=== PATIENT | male | born 1985 | race Caucasian/White ===

== ENCOUNTER 2016-10-18 16:33 | Emergency (ER) | payer OTHER ==
[2016-10-18 17:00] VITALS: BP 134/90; PULSE 88; TEMP 98.2; BMI 31.1
[2016-10-18] MEDS ORDERED: traMADol HCL 50 MG TABLET PO ONE (18:06)
[2016-10-18] MEDS ORDERED: traMADol HCL 50 MG TABLET ONE (18:09)
--- NOTE | 2016-10-18 18:12 | PDOC ---
History of Present Illness - General Chief Complaint: Pain Stated Complaint: PAIN Time Seen by Provider: 10/18/16 16:56 History Source: Patient - History of Present Illness Timing/Duration: 1 week Severity: severe Associated Symptoms: reports: chest pain. denies: cough, fever/chills, nausea/ vomiting, shortness of breath Past History - Past Medical History Allergies/Adverse Reactions: Allergies Allergy/AdvReac Type Severity Reaction Status Date / Time No Known Allergies Allergy Verified 10/18/16 17:00 Home Medications: Ambulatory Orders Tramadol HCl 50 mg PO Q6H #20 tablet MDD 200mg 10/18/16 Other medical history: DENIES - Psycho/Social/Smoking Cessation Hx Suicidal Ideation: No Smoking History: Current every day smoker Have you smoked in the past 12 months: No Number of Cigarettes Smoked Daily: 10 If you are a former smoker, when did you quit?: 2014 Information on smoking cessation initiated: No 'Breaking Loose' booklet given: 06/10/15 Hx Alcohol Use: No Drug/Substance Use Hx: No Substance Use Type: None Review of Systems - Review of Systems Constitutional: No: Fever Respiratory: No: Shortness of Breath, Wheezing Cardiac (ROS): Yes: Chest Pain. No: Lightheadedness, Palpitations, Syncope *Physical Exam - Vital Signs Last Vital Signs Temp Pulse Resp BP Pulse Ox 98.2 F 88 18 134/90 98 10/18/16 16:56 10/18/16 16:56 10/18/16 16:56 10/18/16 16:56 10/18/16 16:56 - Physical Exam General Appearance: Yes: Appropriately Dressed. No: Apparent Distress HEENT: positive: Normal Voice Neck: positive: Supple Respiratory/Chest: positive: Chest Tender (ttp to ~3x4 cm area to R lateral upper chest in MAL, no swelling, erythema or rash), Lungs Clear, Normal Breath Sounds. negative: Respiratory Distress Medical Decision Making - Medical Decision Making 10/18/16 18:07 31-year-old male denies any past medical history here with pain to right side of chest. Patient reports waking up with pain approximately one week ago, describes as a burning sensation, severe and constant. States pain worsens with deep inspiration and movement. Otherwise, no shortness of breath, diaphoresis, nausea, vomiting, palpitations, leg pain, swelling or cough. Denies any trauma or other inciting agent. No recent travel. No history of similar pain in the past. Has been to [facility] twice for pain including today and had negative x-ray on visit last week per pt. States today he was given a shot of Toradol with no relief. Patient also complaining of dental pain , left lower tooth for unclear duration. No facial swelling, fever or chills See exam R chest wall pain x 1 week Neg CXR done at OSH last week On Nsaids w/ no relief Well freddy and stable w/ localized area of significant tenderness to proximal aspect of R lateral chest in MAL, no swelling or other skin changes to explain pain Possible muscular in etiology, unlikely cardiac and PERCs out No utility in reimaging or labs today -dc w/ pain control and PMD f/u Dental pain Poor dentition w/ missing teeth and cavities No s/o infxn currently -dc w/ pain control and dental referral 10/18/16 18:21 10/18/16 18:22 *DC/Admit/Observation/Transfer Diagnosis at time of Disposition: Chest wall pain, Pain, dental - Discharge Dispostion Disposition: HOME Condition at time of disposition: Good - Prescriptions Prescriptions: Tramadol HCl 50 mg PO Q6H #20 tablet MDD 200mg - Referrals Referrals: Dane Benton MD [Staff Physician] - - Patient Instructions Printed Discharge Instructions: Muscle Strain, DI for Dental Pain Additional Instructions: The course of your pain might be muscular. Take meds as directed and follow up with Dr Benton Please follow up in dental clinic in [place] this week: [facility] [address] [place], [place] [id number]
== END 2016-10-18 18:20 | disposition home or self-care (01) ==
LOC: JERFT 16:33
DX: R07.89 Other chest pain (principal); K08.89 Other specified disorders of teeth and supporting structures
CPT/HCPCS: 99281-25

== ENCOUNTER 2017-11-24 10:18 | Inpatient (IN) | payer OTHER ==
[2017-11-24 11:24] VITALS: BMI 28.2
--- NOTE | 2017-11-24 13:35 | HP ---
COWS - Scale Resting Pulse: 1= [place] 81-100 Sweatin= Chills/Flushing Restless Observation: 1= Difficult to Sit Still Pupil Size: 1= Pupils >than Normal Bone or Joint Aches: 2= Severe Diffuse Aches Runny Nose/ Eye Tearin= Nasal Congestion GI Upset > 30mins: 2= Nausea/Diarrhea Tremor Observation: 2= Slight Tremor Visible Yawning Observation: 2= >3x During Session Anxiety or Irritability: 2=Irritable/Anxious Goose Flesh Skin: 3=Piloerection COWS Score: 18 Admission ROS S - HPI Chief Complaint: opiate withdrawal sx Allergies/Adverse Reactions: Allergies Allergy/AdvReac Type Severity Reaction Status Date / Time No Known Allergies Allergy Verified 11/24/17 11:19 History of Present Illness: 32 yeas old male with long history of opiate nicotine dependence denies medical issue has anxiety is admitted to detox Exam Limitations: No Limitations - Ebola screening Have you traveled outside of the country in the last 21 days: No Have you had contact with anyone from an Ebola affected area: No Have you been sick,other than usual withdrawal symptoms: No Do you have a fever: No - Review of Systems Constitutional: Changes in sleep, Weight Stable EENT: reports: No Symptoms Reported Respiratory: reports: Cough Cardiac: reports: No Symptoms Reported GI: reports: Diarrhea, Nausea, Poor Appetite, Poor Fluid Intake, Abdominal cramping : reports: No Symptoms Reported Musculoskeletal: reports: Back Pain, Joint Pain, Muscle Pain, Neck Pain Integumentary: reports: Change in Color (arms iv heroin) Neuro: reports: Tremors Endocrine: reports: No Symptoms Reported Hematology: reports: No Symptoms Reported Psychiatric: reports: Judgement Intact, Orientated x3, Anxious, Depressed Other Systems: Reviewed and Negative Patient History - Patient Medical History Hx Anemia: No Hx Asthma: No Hx Chronic Obstructive Pulmonary Disease (COPD): No Hx Cancer: No Hx Cardiac Disorders: No Hx Congestive Heart Failure: No Hx Hypertension: No Hx Hypercholesterolemia: No Hx Pacemaker: No HX Cerebrovascular Accident: No Hx Seizures: No Hx Dementia: No Hx Diabetes: No Hx Gastrointestinal Disorders: No Hx Liver Disease: No Hx Genitourinary Disorders: No Hx Sexually Transmitted Disorders: No Hx Renal Disease (ESRD): No Hx Thyroid Disease: No Hx Human Immunodeficiency Virus (HIV): No Hx Hepatitis C: Yes (treated) Hx Depression: No Hx Suicide Attempt: No Hx Bipolar Disorder: No Hx Schizophrenia: No - Patient Surgical History Past Surgical History: Yes Hx Neurologic Surgery: No Hx Cataract Extraction: No Hx Cardiac Surgery: No Hx Lung Surgery: No Hx Breast Surgery: No Hx Breast Biopsy: No Hx Abdominal Surgery: No Hx Appendectomy: No Hx Cholecystectomy: No Hx Genitourinary Surgery: No Hx Orthopedic Surgery: No Other Surgical History: removal of cyst, lower back - PPD History Previous Implant?: Yes Documented Results: Negative w/o proof Implanted On Prior R Admission?: No PPD to be Administered?: Yes - Smoking Cessation Smoking history: Current every day smoker Have you smoked in the past 12 months: No Aproximately how many cigarettes per day: 10 If you are a former smoker, when did you quit?: 2014 Hx Chewing Tobacco Use: No Initiated information on smoking cessation: Yes 'Breaking Loose' booklet given: 11/24/17 - Substance & Tx. History Hx Alcohol Use: No Hx Substance Use: Yes Substance Use Type: Cocaine, Marijuana, Opiates Hx Substance Use Treatment: No - Substances Abused Heroin Route: Injection Frequency: Daily Amount used: 4-5 bags Age of first use: 30 Date of Last Use: 11/24/17 Crack Route: Smoking Frequency: 1-2 times per week Amount used: $10 Age of first use: 32 Date of Last Use: 11/22/17 PCP Route: Smoking Frequency: 1-3 times last 30 days Amount used: $20 Age of first use: 18 Date of Last Use: 11/22/17 Marijuana Route: Smoking Frequency: No use in 30 days Amount used: 1 blunt Age of first use: 17 Date of Last Use: 11/23/17 Family Disease History - Family Disease History Family Disease History: Diabetes: Brother Admission Physical Exam BHS - Vital Signs Vital Signs: Vital Signs - 24 hr 11/24/17 11:23 Temperature 98.6 F Pulse Rate 89 Respiratory 18 Rate Blood Pressure 110/66 - Physical General Appearance: Yes: Appropriately Dressed, Moderate Distress, Tremorous, Irritable, Sweating, Anxious HEENTM: Yes: Hearing grossly Normal, Normocephalic, Normal Voice Respiratory: Yes: Chest Non-Tender, Lungs Clear, Normal Breath Sounds, No Respiratory Distress, No Accessory Muscle Use Neck: Yes: Supple, Trachea in good position Breast: Yes: Breasts Symetrical, No Discharge Cardiology: Yes: Regular Rhythm, Regular Rate, S1, S2 Abdominal: Yes: Normal Bowel Sounds, Non Tender, Flat Genitourinary: Yes: Within Normal Limits Back: Yes: Normal Inspection Musculoskeletal: Yes: full range of Motion, Gait Steady, Back pain, Muscle Pain Extremities: Yes: Normal Inspection, Normal Range of Motion, Non-Tender, Tremors Neurological: Yes: Fully Oriented, Alert, Motor Strength 5/5, Normal Response, Depressed Affect Integumentary: Yes: Warm, Track [place] Lymphatic: Yes: Within Normal Limits - Diagnostic (1) Opioid dependence with withdrawal Current Visit: Yes Status: Acute (2) Nicotine dependence Current Visit: Yes Status: Acute Qualifiers: Nicotine product type: cigarettes Substance use status: in withdrawal Qualified Code(s): F17.213 - Nicotine dependence, cigarettes, with withdrawal (3) Hepatitis-C Current Visit: Yes Status: Resolved Qualifiers: Viral hepatitis chronicity: unspecified Hepatic coma status: without hepatic coma Qualified Code(s): B19.20 - Unspecified viral hepatitis C without hepatic coma (4) Anxiety Current Visit: Yes Status: Suspected Cleared for Admission [facility] - Detox or Rehab [facility] Level of Care: Medically Managed Detox Regimen/Protocol: Methadone [facility] Breath Alcohol Content Breath Alcohol Content: 0 Urine Drug Screen - Results Drug Screen Negative: No Urine Drug Screen Results: THC-Marijuana, LINA-Cocaine, OPI-Opiates, PCP- Phencyclidine
[2017-11-24] MEDS ORDERED: P-EPHED 60MG/TRIPROLIDI 2.5MG TABLET PO PRN (13:41)
[2017-11-24] MEDS ORDERED: MAG HYDROX/AL HYDROX/SIMETH 30 ML UNIT-DOSE CUP PO PRN (13:41)
[2017-11-24] MEDS ORDERED: LOPERAMIDE HCL 2 MG CAPSULE PO PRN (13:41)
[2017-11-24] MEDS ORDERED: ACETAMINOPHEN 325 MG TABLET (FP) PO PRN (13:41)
[2017-11-24] MEDS ORDERED: NICOTINE POLACRILEX 2 MG GUM BUC PRN (13:41)
[2017-11-24] MEDS ORDERED: IBUPROFEN 400 MG TABLET (FP) PO PRN (13:41)
[2017-11-24] MEDS ORDERED: guaiFENesin/D-METHORPHAN HB 10 ML UNIT-DOSE CUPS PO PRN (13:41)
[2017-11-24] MEDS ORDERED: MENTHOL/PHENOL 1 EACH UD MM PRN (13:41)
[2017-11-24] MEDS ORDERED: MAGNESIUM HYDROX 2400MG/30ML ORAL SUSPENSION 30 ML CUP PO PRN (13:41)
[2017-11-24] MEDS ORDERED: MAGNESIUM CITRATE 300 ML BOTTLE PO PRN (13:41)
[2017-11-24] MEDS ORDERED: METHADONE HCL 10 MG TABLET (FOR DETOX USE ONLY) PO ONE ×2 (14:30→23:00)
[2017-11-24] MEDS: NICOTINE 14 MG/24 HOURS TOPICAL PATCH TD SCH (17:03)
[2017-11-24] MEDS: BACLOFEN 10 MG TABLET (FP) PO SCH ×2 (17:04→22:07)
[2017-11-24] MEDS: diazePAM 5 MG TABLET PO PRN ×2 (17:04→22:08)
[2017-11-24] MEDS: DOCUSATE SODIUM 100 MG CAPSULE (FP) PO SCH ×2 (17:04→22:07)
[2017-11-24 19:04] LABS: URINE APPEARANCE CLEAR; URINE BILIRUBIN NEGATIVE (<2.0 mg/dL); URINE COLOR LTYELLOW; URINE GLUCOSE (UA) NEGATIVE (NEGATIVE); URINE KETONE NEGATIVE (NEGATIVE); URINE LEUK ESTERASE NEGATIVE (NEGATIVE); URINE NITRITE NEGATIVE (NEGATIVE); URINE PROTEIN NEGATIVE (NEGATIVE); URINE UROBILINOGEN NEGATIVE mg/dL (0.2-1.0)
[2017-11-24] MEDS ORDERED: MELATONIN 5 MG TABLETS PO PRN (22:00)
[2017-11-24] MEDS: THIAMINE HCL 100 MG TABLET (FP) PO SCH (22:07)
[2017-11-24] MEDS: SENNOSIDES 8.6MG TABLET (FP) PO SCH (22:07)
[2017-11-25] MEDS: diazePAM 5 MG TABLET PO PRN ×3 (05:15→22:36)
[2017-11-25] MEDS: BACLOFEN 10 MG TABLET (FP) PO SCH ×3 (05:15→22:37)
[2017-11-25] MEDS: DOCUSATE SODIUM 100 MG CAPSULE (FP) PO SCH ×3 (05:16→22:37)
[2017-11-25 09:54] LABS: HEMATOCRIT 38.8 % (35.4-49); HEMOGLOBIN 12.9 GM/dL (11.7-16.9); MCH 30.1 pg (25.7-33.7); MCHC 33.2 g/dl (32.0-35.9); MEAN CELL VOLUME 90.6 fl (80-96); MEAN PLT VOLUME 9.1 fl (7.5-11.1); PLATELET COUNT 307 K/MM3 (134-434); RBC 4.28 M/mm3 (4.00-5.60); RDW 14.6 % (11.9-15.9); WHITE BLOOD COUNT 11.7 K/mm3 (4.0-10.0)
[2017-11-25] MEDS ORDERED: METHADONE HCL 10 MG TABLET (FOR DETOX USE ONLY) PO ONE (10:00)
[2017-11-25] MEDS: NICOTINE 14 MG/24 HOURS TOPICAL PATCH TD SCH (10:08)
[2017-11-25] MEDS: PRENATAL VITAMINS W/ FOLIC ACID TABLET (FP) PO SCH (10:08)
[2017-11-25 10:49] LABS: ALBUMIN 3.6 g/dl (3.4-5.0); ALK PHOS 71 U/L (45-117); ANION GAP 8 (8-16); BILIRUBIN,TOTAL 0.3 mg/dL (0.2-1.0); BLOOD UREA NITROGEN 14 mg/dL (7-18); CALCIUM 9.2 mg/dL (8.5-10.1); CHLORIDE 107 mmol/L (98-107); CO2 27 mmol/L (21-32); CREATININE 0.8 mg/dL (0.7-1.3); GLUCOSE,RANDOM 92 mg/dL (74-106); POTASSIUM 4.3 mmol/L (3.5-5.1); SGOT/AST 12 U/L (15-37); SGPT/ALT 15 U/L (12-78); SODIUM 142 mmol/L (136-145); TOT PROT 7.1 g/dl (6.4-8.2)
[2017-11-25] MEDS ORDERED: TRIMETHOBENZAMIDE HCL 300 MG CAPSULE PO PRN (11:27)
--- NOTE | 2017-11-25 12:08 | PN ---
BHS COWS - Scale Resting Pulse: 1= [place] 81-100 Sweatin= Chills/Flushing Restless Observation: 1= Difficult to Sit Still Pupil Size: 1= Pupils >than Normal Bone or Joint Aches: 2= Severe Diffuse Aches Runny Nose/ Eye Tearin= Runny Nose/Eyes GI Upset > 30mins: 2= Nausea/Diarrhea Tremor Observation of Outstretched Hands: 2= Slight Tremor Visible Yawning Observation: 1= 1-2x During Session Anxiety or Irritability: 2=Irritable/Anxious Goose Flesh Skin: 0=Smooth Skin COWS Score: 15 BHS Progress Note (SOAP) Subjective: Body Aches, Tremors, Fatigue, Constipation, Sweating, Nausea, Chills, Hot/Cold Sensations. Objective: PATIENT A & O X 2 (UNCERTAIN ABOUT CURRENT DAY / DATE). PATIENT OBSERVED AMBULATING ON UNIT. NO ACUTE DISTRESS. 11/25/17 12:05 Vital Signs Temperature 97.3 F L 11/25/17 09:45 Pulse Rate 87 11/25/17 09:45 Respiratory Rate 16 11/25/17 09:45 Blood Pressure 103/62 11/25/17 09:45 O2 Sat by Pulse Oximetry (%) Laboratory Tests 11/24/17 11/24/17 11/25/17 14:00 14:30 06:00 WBC 11.7 H RBC 4.28 Hgb 12.9 Hct 38.8 MCV 90.6 MCH 30.1 MCHC 33.2 RDW 14.6 Plt Count 307 MPV 9.1 Sodium Potassium Chloride Carbon Dioxide Anion Gap BUN Creatinine Creat Clearance w eGFR Random Glucose Calcium Total Bilirubin AST ALT Alkaline Phosphatase Total Protein Albumin Urine Color Ltyellow Urine Appearance Clear Urine pH 6.0 Ur Specific [place] 1.020 Urine Protein Negative Urine Glucose (UA) Negative Urine Ketones Negative Urine Blood Negative Urine Nitrite Negative Urine Bilirubin Negative Urine Urobilinogen Negative Ur Leukocyte Esterase Negative HIV 1&2 Antibody Screen Negative HIV P24 Antigen Negative 11/25/17 06:00 WBC RBC Hgb Hct MCV MCH MCHC RDW Plt Count MPV Sodium 142 Potassium 4.3 Chloride 107 Carbon Dioxide 27 Anion Gap 8 BUN 14 Creatinine 0.8 Creat Clearance w eGFR > 60 Random Glucose 92 Calcium 9.2 Total Bilirubin 0.3 AST 12 L ALT 15 Alkaline Phosphatase 71 Total Protein 7.1 Albumin 3.6 Urine Color Urine Appearance Urine pH Ur Specific [place] Urine Protein Urine Glucose (UA) Urine Ketones Urine Blood Urine Nitrite Urine Bilirubin Urine Urobilinogen Ur Leukocyte Esterase HIV 1&2 Antibody Screen HIV P24 Antigen LABS NOTED. RPR RESULT PENDING. 11/25/17 12:06 Assessment: 11/25/17 12:05 WITHDRAWAL SYMPTOMS. Plan: CONTINUE DETOX. INCREASE DAILY PO FLUID INTAKE. TIGAN PO PRN FOR NAUSEA/VOMITING. PRN MOM FOR CONSTIPATION.
--- NOTE | 2017-11-25 19:06 | CONSULT ---
[facility] Psychiatric Consult - Data Date of interview: 11/25/17 Admission source: [facility] Identifying data: First admission to [facility] for this 32 y/o male seeking detox treatment on for heroin,cannabis,cocaine and phencyclidine dependence.Patient is single,fathre of one,homeless,unemployed and supported on food stamps. Substance Abuse History: Confirmed by patient in my interview.Smoking history: Current every day smoker. Have you smoked in the past 12 months: No. Aproximately how many cigarettes per day: 10. If you are a former smoker, when did you quit?: 2014. Hx Chewing Tobacco Use: No. Initiated information on smoking cessation: Yes. 'Breaking Loose' booklet given: 11/24/17. - Substance & Tx. History. Hx Alcohol Use: No. Hx Substance Use: Yes. Substance Use Type : Cocaine, Marijuana, Opiates. Hx Substance Use Treatment: No. - Substances Abused. Heroin. Route: Injection. Frequency: Daily. Amount used: 4-5 bags. Age of first use: 30. Date of Last Use: 11/24/17. Crack. Route: Smoking. Frequency: 1-2 times per week. Amount used: $10. Age of first use: 32. Date of Last Use: 11/22/17. PCP. Route: Smoking. Frequency: 1-3 times last 30 days. Amount used: $20. Age of first use: 18. Date of Last Use : 11/22/17. Marijuana. Route: Smoking. Frequency: No use in 30 days. Amount used: 1 blunt. Age of first use: 17. Date of Last Use: 11/23/17 Medical History: Hepatitis C (treated). Psychiatric History: No reported history of psychiatric hospitalizations.Patient denies having a " psychiatric diagnosis ".Mr Multani indicates that he used to be on seroquel to address insomnia (during stay at [facility]).No contact with psychiatric OPD care providers.Patient denies history of suicide attempts. Physical/Sexual Abuse/Trauma History: No reported history of abuse. Additional Comment: Urine Drug Screen Results: THC-Marijuana, LINA-Cocaine, OPI- Opiates, PCP-Phencyclidine.Noted. Mental Status Exam - Mental Status Exam Alert and Oriented to: Time, Place, Person Cognitive Function: Good Patient Appearance: Well Groomed Mood: Withdrawn, Hopeful Affect: Constricted Patient Behavior: Fatigued, Appropriate, Cooperative Speech Pattern: Clear, Appropriate Voice Loudness: Normal Thought Process: Intact, Goal Oriented Thought Disorder: Not Present Hallucinations: Denies Suicidal Ideation: Denies Homicidal Ideation: Denies Insight/Judgement: Poor Sleep: Poorly, Difficulty falling asleep Appetite: Good Muscle strength/Tone: Normal Gait/Station: Normal Psychiatric Findings - Problem List ([place] 1, 2,3) (1) Opioid dependence with withdrawal Current Visit: Yes Status: Acute (2) Cocaine dependence Current Visit: Yes Status: Acute (3) Cannabis dependence Current Visit: Yes Status: Acute (4) PCP dependence Current Visit: Yes Status: Acute (5) Nicotine dependence Current Visit: Yes Status: Acute Qualifiers: Nicotine product type: cigarettes Substance use status: in withdrawal Qualified Code(s): F17.213 - Nicotine dependence, cigarettes, with withdrawal (6) Substance induced mood disorder Current Visit: Yes Status: Acute (7) Insomnia Current Visit: Yes Status: Acute - Initial Treatment Plan Initial Treatment Plan: Psychoeducation.Sleep hygiene.Detoxification.Seroquel 50 mg po hs (patient's request).Side effects/benefits discussed with the patient.Mr Multani agrees to this careplan.Observation.
[2017-11-25] MEDS: SENNOSIDES 8.6MG TABLET (FP) PO SCH (22:36)
[2017-11-25] MEDS: THIAMINE HCL 100 MG TABLET (FP) PO SCH (22:36)
[2017-11-26] MEDS: DOCUSATE SODIUM 100 MG CAPSULE (FP) PO SCH (05:11)
[2017-11-26] MEDS: diazePAM 5 MG TABLET PO PRN ×2 (05:11→10:12)
[2017-11-26] MEDS: BACLOFEN 10 MG TABLET (FP) PO SCH (05:11)
--- NOTE | 2017-11-26 09:04 | EKG ---
Test Reason : Blood Pressure : / mmHG Vent. Rate : 062 BPM Atrial Rate : 062 BPM P-R Int : 168 ms QRS Dur : 098 ms QT Int : 396 ms P-R-T Axes : 047 048 016 degrees QTc Int : 401 ms NORMAL SINUS RHYTHM NORMAL ECG NO PREVIOUS ECGS AVAILABLE Confirmed by PAUL BARRY, LAY ([id number]) on 11/26/2017 9:03:53 AM Referred By: Confirmed By:LAY MILLER MD
[2017-11-26] MEDS ORDERED: METHADONE HCL 5 MG TABLET (FOR DETOX USE ONLY) PO ONE (10:00)
[2017-11-26] MEDS: NICOTINE 14 MG/24 HOURS TOPICAL PATCH TD SCH (10:12)
[2017-11-26] MEDS: PRENATAL VITAMINS W/ FOLIC ACID TABLET (FP) PO SCH (10:12)
[2017-11-26 10:44] VITALS: BP 108/73; PULSE 87; TEMP 98.4
--- NOTE | 2017-11-26 15:50 | PN ---
BHS COWS - Scale Resting Pulse: 1= [place] 81-100 Sweatin= Chills/Flushing Restless Observation: 1= Difficult to Sit Still Pupil Size: 0= Normal to Room Light Bone or Joint Aches: 2= Severe Diffuse Aches Runny Nose/ Eye Tearin= Nasal Congestion GI Upset > 30mins: 0= None Tremor Observation of Outstretched Hands: 0= None Yawning Observation: 1= 1-2x During Session Anxiety or Irritability: 2=Irritable/Anxious Goose Flesh Skin: 3=Piloerection COWS Score: 12 BHS Progress Note (SOAP) Subjective: Anxious, Sweating, Body Aches. Objective: PATIENT A & O X 3, OBSERVED AMBULATING ON UNIT. NO ACUTE DISTRESS. 11/26/17 15:49 Vital Signs Temperature 98.4 F 11/26/17 10:44 Pulse Rate 87 11/26/17 10:44 Respiratory Rate 19 11/26/17 10:44 Blood Pressure 108/73 11/26/17 10:44 O2 Sat by Pulse Oximetry (%) Laboratory Tests 11/24/17 11/24/17 11/25/17 14:00 14:30 06:00 WBC 11.7 H RBC 4.28 Hgb 12.9 Hct 38.8 MCV 90.6 MCH 30.1 MCHC 33.2 RDW 14.6 Plt Count 307 MPV 9.1 Sodium Potassium Chloride Carbon Dioxide Anion Gap BUN Creatinine Creat Clearance w eGFR Random Glucose Calcium Total Bilirubin AST ALT Alkaline Phosphatase Total Protein Albumin Urine Color Ltyellow Urine Appearance Clear Urine pH 6.0 Ur Specific [place] 1.020 Urine Protein Negative Urine Glucose (UA) Negative Urine Ketones Negative Urine Blood Negative Urine Nitrite Negative Urine Bilirubin Negative Urine Urobilinogen Negative Ur Leukocyte Esterase Negative RPR Titer HIV 1&2 Antibody Screen Negative HIV P24 Antigen Negative 11/25/17 11/25/17 06:00 06:00 WBC RBC Hgb Hct MCV MCH MCHC RDW Plt Count MPV Sodium 142 Potassium 4.3 Chloride 107 Carbon Dioxide 27 Anion Gap 8 BUN 14 Creatinine 0.8 Creat Clearance w eGFR > 60 Random Glucose 92 Calcium 9.2 Total Bilirubin 0.3 AST 12 L ALT 15 Alkaline Phosphatase 71 Total Protein 7.1 Albumin 3.6 Urine Color Urine Appearance Urine pH Ur Specific [place] Urine Protein Urine Glucose (UA) Urine Ketones Urine Blood Urine Nitrite Urine Bilirubin Urine Urobilinogen Ur Leukocyte Esterase RPR Titer Nonreactive HIV 1&2 Antibody Screen HIV P24 Antigen LABS NOTED. Assessment: 11/26/17 15:50 WITHDRAWAL SYMPTOMS. Plan: CONTINUE DETOX.
--- NOTE | 2017-11-26 15:51 | DS ---
[facility] Detox Discharge Summary Admission Date: 11/24/17 Discharge Date: 11/26/17 - History Present History: Cannabis Dependence, Cocaine Dependence, Opioid Dependence, Pcp Dependence Additional Comments: PATIENT HAS PERSONAL ISSUES TO ATTEND TO AND DOES NOT WISH TO REMAIN TO COMPLETE DETOX REGIMEN. RISKS OF LEAVING DETOX UNIT AGAINST MEDICAL ADVICE AND PRIOR TO COMPLETION OF DETOX REGIMEN EXPLAINED TO PATIENT. PATIENT ADVISED TO GO IMMEDIATELY TO NEAREST ER SHOULD ANY INTOLERABLE DETOX SYMPTOMS DEVELOP AT ANY TIME. PATIENT LEFT DETOX UNIT IN STABLE MEDICAL CONDITION. Pertinent Past History: Hep C (Treated), Anxiety, Nicotine Dependence, Insomnia. - Physical Exam Results Vital Signs: Vital Signs Temperature 98.4 F 11/26/17 10:44 Pulse Rate 87 11/26/17 10:44 Respiratory Rate 19 11/26/17 10:44 Blood Pressure 108/73 11/26/17 10:44 O2 Sat by Pulse Oximetry (%) Pertinent Admission Physical Exam Findings: WITHDRAWAL SYMPTOMS. Laboratory Tests 11/24/17 11/24/17 11/25/17 14:00 14:30 06:00 WBC 11.7 H RBC 4.28 Hgb 12.9 Hct 38.8 MCV 90.6 MCH 30.1 MCHC 33.2 RDW 14.6 Plt Count 307 MPV 9.1 Sodium Potassium Chloride Carbon Dioxide Anion Gap BUN Creatinine Creat Clearance w eGFR Random Glucose Calcium Total Bilirubin AST ALT Alkaline Phosphatase Total Protein Albumin Urine Color Ltyellow Urine Appearance Clear Urine pH 6.0 Ur Specific [place] 1.020 Urine Protein Negative Urine Glucose (UA) Negative Urine Ketones Negative Urine Blood Negative Urine Nitrite Negative Urine Bilirubin Negative Urine Urobilinogen Negative Ur Leukocyte Esterase Negative RPR Titer HIV 1&2 Antibody Screen Negative HIV P24 Antigen Negative 11/25/17 11/25/17 06:00 06:00 WBC RBC Hgb Hct MCV MCH MCHC RDW Plt Count MPV Sodium 142 Potassium 4.3 Chloride 107 Carbon Dioxide 27 Anion Gap 8 BUN 14 Creatinine 0.8 Creat Clearance w eGFR > 60 Random Glucose 92 Calcium 9.2 Total Bilirubin 0.3 AST 12 L ALT 15 Alkaline Phosphatase 71 Total Protein 7.1 Albumin 3.6 Urine Color Urine Appearance Urine pH Ur Specific [place] Urine Protein Urine Glucose (UA) Urine Ketones Urine Blood Urine Nitrite Urine Bilirubin Urine Urobilinogen Ur Leukocyte Esterase RPR Titer Nonreactive HIV 1&2 Antibody Screen HIV P24 Antigen LABS NOTED. - Treatment Hospital Course: Detoxed Safely - Medication Discharge Medications: Ambulatory Orders NK [No Known Home Medication] 11/24/17 - Diagnosis (1) Nicotine dependence Status: Acute Qualifiers: Nicotine product type: cigarettes Substance use status: in withdrawal Qualified Code(s): F17.213 - Nicotine dependence, cigarettes, with withdrawal (2) Opioid dependence with withdrawal Status: Acute (3) Anxiety Status: Suspected (4) Hepatitis-C Status: Resolved Qualifiers: Viral hepatitis chronicity: unspecified Hepatic coma status: without hepatic coma Qualified Code(s): B19.20 - Unspecified viral hepatitis C without hepatic coma (5) Cannabis dependence Status: Acute (6) Cocaine dependence Status: Acute Qualifiers: Substance use status: uncomplicated Qualified Code(s): F14.20 - Cocaine dependence, uncomplicated (7) Insomnia Status: Acute Qualifiers: Insomnia type: unspecified Qualified Code(s): G47.00 - Insomnia, unspecified (8) PCP dependence Status: Acute (9) Substance induced mood disorder Status: Acute - AMA Did Patient Leave Against Medical Advice: Yes (PT HAS PERSONAL ISSUES, DOES NOT WISH TO REMAIN TO COMPLETE DETOX REGIMEN.)
[2017-11-27] MEDS ORDERED: METHADONE HCL 5 MG TABLET (FOR DETOX USE ONLY) PO ONE (10:00)
[2017-11-28] MEDS ORDERED: METHADONE HCL 10 MG TABLET (FOR DETOX USE ONLY) PO ONE (10:00)
[2017-11-29] MEDS ORDERED: METHADONE HCL 5 MG TABLET (FOR DETOX USE ONLY) PO ONE (06:00)
== END 2017-11-26 12:06 | disposition left against medical advice (07) | DRG 770 ==
LOC: YASAS 10:18 → Y3N 14:07
PROVIDERS: ADMIT Surgery; ATTEND Surgery
PROC: HZ2ZZZZ Detoxification Services for Substance Abuse Treatment (ICD-10-PCS; principal; 2017-11-24)
DX: F11.23 Opioid dependence with withdrawal (principal); F14.20 Cocaine dependence, uncomplicated; F16.20 Hallucinogen dependence, uncomplicated; F12.20 Cannabis dependence, uncomplicated; F17.213 Nicotine dependence, cigarettes, with withdrawal; F41.9 Anxiety disorder, unspecified; F19.24 Other psychoactive substance dependence with psychoactive substance-induced mood disorder; B19.20 Unspecified viral hepatitis C without hepatic coma; G47.00 Insomnia, unspecified
CPT/HCPCS: 36415; 80053; 81003; 85027; 86593; 87389; 93005; 93010; J0475

== ENCOUNTER 2017-12-28 13:42 | Inpatient (IN) | payer OTHER ==
[2017-12-28 16:38] VITALS: BMI 28.4
--- NOTE | 2017-12-28 18:06 | HP ---
"COWS - Scale Resting Pulse: 0= HI 80 or Below Sweatin= Beads of Sweat on Face Restless Observation: 3= Extraneous Movement Pupil Size: 2= Moderately Dilated (Pupils = 4mm) Bone or Joint Aches: 1= Mild Discomfort Runny Nose/ Eye Tearin= Nasal Congestion GI Upset > 30mins: 2= Nausea/Diarrhea Tremor Observation: 2= Slight Tremor Visible Yawning Observation: 0= None Anxiety or Irritability: 2=Irritable/Anxious Goose Flesh Skin: 0=Smooth Skin COWS Score: 16 Admission [facility] Chief Complaint: Here for heroin withdrawal. Allergies/Adverse Reactions: Allergies Allergy/AdvReac Type Severity Reaction Status Date / Time No Known Allergies Allergy Verified 12/28/17 17:16 History of Present Illness: Heroin use since age 28. Marijuana use since age 17. States rare alcohol intake. Denies benzo or other substance use. Denies hx blackouts or seizures. States longest length of sobriety was 2 days when not in detox or rehab. Uses Heroin IV. Denies sharing needles and works. Hx. chronic back pain w/ surgery. Denies other significant PMH/PSH. Search Terms: Dylon Multani, 1985 Search Date: 12/28/2017 06:02:39 PM The Drug Utilization Report below displays all of the controlled substance prescriptions, if any, that your patient has filled in the last twelve months. The information displayed on this report is compiled from pharmacy submissions to the Department, and accurately reflects the information as submitted by the pharmacies. This report was requested by: Yulisa Rajput | Reference #: [id number] There are no results for the search terms that you entered. Exam Limitations: No Limitations - Ebola screening Have you traveled outside of the country in the last 21 days: No Have you had contact with anyone from an Ebola affected area: No Have you been sick,other than usual withdrawal symptoms: No Do you have a fever: No - Review of Systems Constitutional: Chills, Diaphoresis, Changes in sleep (Difficulty falling sleep) EENT: reports: Blurred Vision (Reading and TV glasses), Nose Congestion Respiratory: reports: No Symptoms reported Cardiac: reports: No Symptoms Reported GI: reports: Diarrhea (r/t withdrawal), Nausea (r/t withdrawal) : reports: No Symptoms Reported Musculoskeletal: reports: Back Pain (Chronic back sharp/achy pain in lower back. Pain is a '8'. Increases w/ withdrawal. and w/ certai positions. Decreases w/ drug use.) Integumentary: reports: No Symptoms Reported Neuro: reports: Tremors Endocrine: reports: No Symptoms Reported Hematology: reports: No Symptoms Reported Psychiatric: reports: Orientated x3, Agitated, Anxious Patient History - Patient Medical History Hx Anemia: No Hx Asthma: No Hx Chronic Obstructive Pulmonary Disease (COPD): No Hx Cancer: No Hx Cardiac Disorders: No Hx Congestive Heart Failure: No Hx Hypertension: No Hx Hypercholesterolemia: No Hx Pacemaker: No HX Cerebrovascular Accident: No Hx Seizures: No Hx Dementia: No Hx Diabetes: No Hx Gastrointestinal Disorders: No Hx Liver Disease: No Hx Genitourinary Disorders: No Hx Sexually Transmitted Disorders: No Hx Renal Disease (ESRD): No Hx Thyroid Disease: No Hx Human Immunodeficiency Virus (HIV): No Hx Hepatitis C: Yes (treated) Hx Depression: No Hx Suicide Attempt: No Hx Bipolar Disorder: No Hx Schizophrenia: No - Patient Surgical History Past Surgical History: Yes Hx Neurologic Surgery: No Hx Cataract Extraction: No Hx Cardiac Surgery: No Hx Lung Surgery: No Hx Breast Surgery: No Hx Breast Biopsy: No Hx Abdominal Surgery: No Hx Appendectomy: No Hx Cholecystectomy: No Hx Genitourinary Surgery: No Hx Section: No Hx Orthopedic Surgery: No Other Surgical History: removal of cyst, lower back - @ age 17. - PPD History Previous Implant?: Yes Documented Results: Negative w/proof Implanted On Prior R Admission?: Yes Date: 11/26/17 (Left prior to reading) PPD to be Administered?: Yes - Smoking Cessation Smoking history: Current every day smoker Have you smoked in the past 12 months: Yes Aproximately how many cigarettes per day: 10 If you are a former smoker, when did you quit?: 2014 Hx Chewing Tobacco Use: No Initiated information on smoking cessation: Yes 'Breaking Loose' booklet given: 12/28/17 - Substance & Tx. History Hx Alcohol Use: No Hx Substance Use: Yes Substance Use Type: Cocaine - Substances Abused Heroin Route: Injection Frequency: Daily Amount used: 6-7 bags Age of first use: 28 Date of Last Use: 12/28/17 Marijuana/Hashish Route: Smoking Frequency: 1-2 times per week Amount used: 1 joint Age of first use: 17 Date of Last Use: 12/26/17 Family Disease History - Family Disease History Family Disease History: Diabetes: Brother Admission Physical Exam [facility] - Vital Signs Vital Signs: Vital Signs - 24 hr 12/28/17 16:37 Temperature 97.4 F L Pulse Rate 68 Respiratory 18 Rate Blood Pressure 119/69 - Physical General Appearance: Yes: Nourished, Mild Distress, Tremorous, Irritable, Sweating, Anxious HEENTM: Yes: EOMI, Hearing grossly Normal, Normocephalic, NEW (Pupils 4 mm) Respiratory: Yes: Chest Non-Tender, Lungs Clear, Normal Breath Sounds, No Respiratory Distress Neck: Yes: No masses,lesions,Nodules, Supple Breast: Yes: Breast Exam Deferred Cardiology: Yes: Regular Rhythm, Regular Rate, S1, S2 Abdominal: Yes: Non Tender, Flat, Soft, Increased Bowel Sounds Genitourinary: Yes: Within Normal Limits Back: Yes: Normal Inspection Musculoskeletal: Yes: full range of Motion, Gait Steady Extremities: Yes: Normal Capillary Refill, Normal Range of Motion, Non-Tender, Tremors 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, Fully Oriented, Alert, Motor Strength 5/5, Normal Mood/Affect Integumentary: Yes: Normal Color, Warm, Diaphoresis, Track [place] (No increased erythema or warmth.) Lymphatic: Yes: Within Normal Limits - Diagnostic (1) Cannabis dependence Current Visit: No Status: Chronic (2) Opioid dependence with withdrawal Current Visit: Yes Status: Acute (3) Nicotine dependence Current Visit: Yes Status: Acute Qualifiers: Nicotine product type: cigarettes Substance use status: uncomplicated Qualified Code(s): F17.210 - Nicotine dependence, cigarettes, uncomplicated Cleared for Admission [facility] - Detox or Rehab [facility] Level of Care: Medically Managed Detox Regimen/Protocol: Methadone [facility] Breath Alcohol Content Breath Alcohol Content: 0 Urine Drug Screen - Results Drug Screen Negative: No Urine Drug Screen Results: THC-Marijuana, OPI-Opiates, BZO-Benzodiazepines, OXY- Oxycodone"
[2017-12-28] MEDS ORDERED: MAG HYDROX/AL HYDROX/SIMETH 30 ML UNIT-DOSE CUP PO PRN (18:38)
[2017-12-28] MEDS ORDERED: IBUPROFEN 400 MG TABLET (FP) PO PRN (18:38)
[2017-12-28] MEDS ORDERED: guaiFENesin/D-METHORPHAN HB 10 ML UNIT-DOSE CUPS PO PRN (18:38)
[2017-12-28] MEDS ORDERED: MENTHOL/PHENOL 1 EACH UD MM PRN (18:38)
[2017-12-28] MEDS ORDERED: NICOTINE POLACRILEX 2 MG GUM BC PRN (18:38)
[2017-12-28] MEDS ORDERED: MAGNESIUM HYDROX 2400MG/30ML ORAL SUSPENSION 30 ML CUP PO PRN (18:38)
[2017-12-28] MEDS ORDERED: LOPERAMIDE HCL 2 MG CAPSULE PO PRN (18:38)
[2017-12-28] MEDS ORDERED: P-EPHED 60MG/TRIPROLIDI 2.5MG TABLET PO PRN (18:38)
[2017-12-28] MEDS ORDERED: hydrOXYzine PAMOATE 50 MG CAPSULE (FP) PO PRN (18:38)
[2017-12-28] MEDS ORDERED: ACETAMINOPHEN 325 MG TABLET (FP) PO PRN (18:38)
[2017-12-28] MEDS ORDERED: MAGNESIUM CITRATE 300 ML BOTTLE PO PRN (18:38)
[2017-12-28] MEDS ORDERED: METHADONE HCL 10 MG TABLET (FOR DETOX USE ONLY) PO ONE ×2 (19:00→23:00)
[2017-12-28] MEDS: diazePAM 5 MG TABLET PO PRN (19:50)
[2017-12-28] MEDS ORDERED: THIAMINE HCL 100 MG TABLET (FP) PO SCH (22:00)
[2017-12-28] MEDS ORDERED: MELATONIN 5 MG TABLETS PO PRN (22:00)
[2017-12-29 01:15] LABS: URINE APPEARANCE TURBID; URINE BILIRUBIN NEGATIVE (<2.0 mg/dL); URINE COLOR YELLOW; URINE GLUCOSE (UA) NEGATIVE (NEGATIVE); URINE KETONE NEGATIVE (NEGATIVE); URINE LEUK ESTERASE NEGATIVE (NEGATIVE); URINE NITRITE NEGATIVE (NEGATIVE); URINE UROBILINOGEN NEGATIVE mg/dL (0.2-1.0)
[2017-12-29 01:38] LABS: URINE PROTEIN 1+ (NEGATIVE)
[2017-12-29 01:44] LABS: URINE HYALINE CAST 18 /lpf; URINE MUCUS MANY; YEAST MANY
[2017-12-29] MEDS: diazePAM 5 MG TABLET PO PRN (07:31)
[2017-12-29] MEDS ORDERED: NICOTINE 14 MG/24 HOURS TOPICAL PATCH TD SCH (10:00)
[2017-12-29] MEDS ORDERED: PRENATAL VITAMINS W/ FOLIC ACID TABLET (FP) PO SCH (10:00)
[2017-12-29] MEDS ORDERED: METHADONE HCL 10 MG TABLET (FOR DETOX USE ONLY) PO ONE (10:00)
[2017-12-29 10:43] VITALS: BP 94/59; PULSE 69; TEMP 97
--- NOTE | 2017-12-29 10:58 | DS ---
[facility] Detox Discharge Summary Admission Date: 12/28/17 Discharge Date: 12/29/17 - History Present History: Cannabis Dependence, Cocaine Dependence, Opioid Dependence Additional Comments: PT SIGNED OUT AMA FOR MEDICAL MANAGEMENT. Pertinent Past History: PLEASE SEE DX BELOW - Physical Exam Results Vital Signs: Vital Signs Temperature 97.0 F L 12/29/17 10:42 Pulse Rate 69 12/29/17 10:42 Respiratory Rate 18 12/29/17 10:42 Blood Pressure 94/59 12/29/17 10:42 O2 Sat by Pulse Oximetry (%) Pertinent Admission Physical Exam Findings: WITHDRAWAL SX Laboratory Tests 12/29/17 00:40 Urine Color Yellow Urine Appearance Turbid Urine pH 5.0 Ur Specific [place] 1.036 H Urine Protein 1+ H Urine Glucose (UA) Negative Urine Ketones Negative Urine Blood Negative Urine Nitrite Negative Urine Bilirubin Negative Urine Urobilinogen Negative Ur Leukocyte Esterase Negative Urine WBC (Auto) 162 Urine RBC (Auto) 2 Hyaline Casts 18 Urine Mucus Many Urine Yeast Many - Treatment Hospital Course: Discharged Condition Good - Medication Discharge Medications: Ambulatory Orders NK [No Known Home Medication] 11/24/17 - Diagnosis (1) Hx of hepatitis C Current Visit: Yes Status: Chronic - AMA Did Patient Leave Against Medical Advice: Yes (AMA)
--- NOTE | 2017-12-29 11:01 | PN ---
[facility] Progress Note Note: PT DECLINED TO CONTINUE WITH DETOX STATING "I'M NOT READY". ALERT O X 3. NAD. PT REPORTS HE HAS PRIMARY CARE WITH A PMD AT [facility].
--- NOTE | 2017-12-29 13:48 | EKG ---
Test Reason : Blood Pressure : / mmHG Vent. Rate : 080 BPM Atrial Rate : 080 BPM P-R Int : 170 ms QRS Dur : 102 ms QT Int : 388 ms P-R-T Axes : 060 038 021 degrees QTc Int : 447 ms NORMAL SINUS RHYTHM NORMAL ECG WHEN COMPARED WITH ECG OF 24-NOV-2017 15:36, NO SIGNIFICANT CHANGE WAS FOUND Confirmed by CATHY GALINDO MD ([id number]) on 12/29/2017 1:48:34 PM Referred By: Confirmed By:CTAHY GALINDO MD
[2017-12-30] MEDS ORDERED: METHADONE HCL 5 MG TABLET (FOR DETOX USE ONLY) PO ONE (10:00)
[2017-12-31] MEDS ORDERED: METHADONE HCL 5 MG TABLET (FOR DETOX USE ONLY) PO ONE (10:00)
[2018-01-01] MEDS ORDERED: METHADONE HCL 10 MG TABLET (FOR DETOX USE ONLY) PO ONE (10:00)
[2018-01-02] MEDS ORDERED: METHADONE HCL 5 MG TABLET (FOR DETOX USE ONLY) PO ONE (06:00)
== END 2017-12-29 10:35 | disposition left against medical advice (07) | DRG 770 ==
LOC: YASAS 13:42 → Y3N 17:58
PROC: HZ2ZZZZ Detoxification Services for Substance Abuse Treatment (ICD-10-PCS; principal; 2017-12-28)
DX: F11.23 Opioid dependence with withdrawal (principal); F14.20 Cocaine dependence, uncomplicated; F12.20 Cannabis dependence, uncomplicated; F17.210 Nicotine dependence, cigarettes, uncomplicated; B18.2 Chronic viral hepatitis C
CPT/HCPCS: 81003; 81015; 93005; 93010